=== PATIENT | female | born 1960 | race Caucasian/White ===

== ENCOUNTER 2024-06-10 12:26 | Emergency (ER) | payer MEDICARE, SELFPAY ==
--- OUTSIDE RECORDS SUMMARY | 2024-06-10 12:28 | XMS_ITS | Clinical Summary ---
Author Organization [facility] Address [address] [place] [address] Care Team Providers Care Coverage Specialist Name Role Phone Elsewhere, Pcp Primary Care Provider Unavailabl e Source Comments Patient records contain information from all sites at [facility]. For routine questions regarding patient records, call [phone] during business hours, M-F 8:00 AM - 5:00 PM Central Time. Record requests for emergency care only can be directed to [phone] at any time.[facility] Allergies No known active allergies Medications acetaminophen (TYLENOL) 325 mg tablet Take 650 mg by mouth every 6 (six) hours. 09/04/19 23 Active ferrous gluconate (FERGON) 324 mg (38 mg iron) tablet Take 324 mg by mouth. 09/04/19 23 Active folic acid 1 mg tablet Take 1 mg by mouth daily. 09/05/19 23 Active nicotine (NICOTROL) 10 mg inhaler Inhale 10 mg every 2 (two) hours as needed. 09/04/19 23 Active oxyCODONE (ROXICODONE) 5 mg immediate release tablet Take 5 mg by mouth every 4 (four) hours as needed. 09/04/19 23 Active pantoprazole (PROTONIX) 40 mg EC tablet Take 40 mg by mouth. 09/04/19 23 Active polyethylene glycol (MIRALAX) 17 gram powder packet 17 g by Nasogastric route at bedtime as needed. 09/04/19 23 Active sennosides (SENOKOT) 8.6 mg tablet Take 8.6 mg by mouth 2 (two) times a day as needed. 09/04/19 23 Active sodium chloride 1,000 mg disintegrating tablet Take 1 g by mouth. 09/04/19 23 Active thiamine mononitrate, vit B1, (VITAMIN B1) 100 mg tablet Take 100 mg by mouth. 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 Gender Identity Not on file Sexual Orientation Not on file Last Filed Vital Signs Vital Sign Reading Time Taken Comments Blood Pressure 120/80 01/07/2016 4:42 PM CDT Pulse 80 01/07/2016 4:42 PM CDT Temperature - - Respiratory Rate 16 01/07/2016 4:42 PM CDT Oxygen Saturation - - Inhaled Oxygen Concentration - - Weight 63 kg (138 lb 14.2 oz) 01/07/2016 4:42 PM CDT Height 170 cm (5' 6.93) 01/07/2016 4:42 PM CDT Body Mass Index 21.8 01/07/2016 4:42 PM CDT Plan of Treatment Health Maintenance Due Date Last Done Comments Bone Density Scan (Osteoporosis Screen) 1958 CT Colonography 1958 Cologuard 1958 Colonoscopy 1958 Colorectal Cancer Screening 1958 FIT 1958 Hepatitis B Screening 1958 Hepatitis C Screening 1958 Mammogram 1958 Pneumococcal vaccine (50+ years) (1 of 2 - PCV) 1977 Zoster Vaccines (2 of 2) 09/11/2021 07/17/2021 COVID-19 Vaccine (2023- season) 2023 02/18/2023, 01/20/2022, 03/06/2021, Additional history exists Influenza Vaccine (#1) 2023 01/16/2020 Depression Screening (Annual PHQ-2) 03/28/2024 Fall Risk Screen (Annual) 03/28/2024 Fasting Glucose for Diabetes Screening 10/18/2025 10/18/2022, 10/06/2022, 09/20/2022, Additional history exists DTaP,Tdap,and Td Vaccines (2 - Td or Tdap) 09/20/2032 09/20/2022 IPV Vaccines Aged Out No longer eligi ble based on patient's age to complete this topic Procedures Procedure Name Priority Date/Time Associated Diagnosis Comments BASIC METABOLIC PANEL, S/P Routine 01/07/2016 5:43 PM CDT from Last 3 Months or Most Recently Relevant to Health Maintenance Results * (ABNORMAL) BMP (Basic Metabolic Panel) (01/07/2016 5:43 PM CDT) Sodium, S 135 135 - 145 MMOLL POWERCHART Potassium, S 4.0 3.6 - 5.2 MMOLL POWERCHART Chloride, S 93(L) 98 - 107 MMOLL POWERCHART CO2 Total 26 22 - 29 MMOLL POWERCHART BUN (Blood Urea Nitrogen), S 11 6 - 21 MGDL POWERCHART Creatinine 0.56(L) 0.60 - 1.10 MGDL POWERCHART Calcium, Total, S 9.7 8.0 - 10.3 MGDL POWERCHART Anion Gap 16(H) 7 - 15 MMOLL POWERCHART HXeGFR (MDRD) >60 >=60 [id number] POWERCHART eGFR Black/ >60 >=60 [id number] POWERCHART Glucose 80 70 - 139 MGDL POWERCHART Blood 01/07/2016 5:43 PM CDT us Tony Barboza P.A.-C. LAB BLOOD ADD-ON Final Result POWERCHART from Last 3 Months or Most Recently Relevant to Health Maintenance Care Teams Coverage Specialist Relationship Specialty Start Date End Date Elsewhere, Pcp PCP - General 12/26/20
--- OUTSIDE RECORDS SUMMARY | 2024-06-10 12:29 | XMS_ITS | Clinical Summary ---
Author Organization [facility] Address [address] [place] [address] Care Team Providers Care Product Expert Name Role Phone [facility] + [phone] Amanda Leija Primary Care Provider + [phone] Allergies No known active allergies Medications folic acid 1 mg tabletIndication s:Anemia, unspecified type Take 1 Tablet (1 mg) by mouth once daily. 30 Tablet 09/04/2022 Active thiamine mononitrate, vit B1, (VITAMIN B1) 100 mg tabletIndication s:Alcohol use Take 1 Tablet (100 mg) by mouth once daily. 30 Tablet 09/04/2022 Active calcium carbonate-vitami n D3, 600 mg-400 unit, 600 mg-10 mcg (400 unit) tablet Take 1 Tablet by mouth two times daily with meals. 200 Tablet 4 09/14/2022 Active sodium chloride 1,000 mg soluble tabletIndication s:Hyponatremia Take 1 Tablet (1,000 mg) by mouth two times daily. 180 Tablet 3 09/20/2022 Active Ferrous Gluconate 324 mg (38 mg iron) tabletIndication s:Iron deficiency Take 1 Tablet (324 mg) by mouth once daily with a meal. 90 Tablet 3 09/20/2022 Active Active Problems Problem Noted Date Diagnosed Date Cataract of both eyes 02/18/2023 Heart murmur 02/18/2023 SIADH (syndrome of inappropriate ADH production) 09/21/2022 Closed fracture of olecranon process of right ulna with routine healing 09/21/2022 Pelvic fracture 08/24/2022 Closed displaced fracture of acromial end of right clavicle with routine healing 06/07/2022 Overview (06/07/2022): 2022: Fall resulting in rib and clavicle fracture. Ascending aortic aneurysm 06/07/2022 Overview (06/07/2022): May 2022: CT showing 4.1 cm Ascending aortic enlargement. Plan to recheck in 1 year ( May 2023). Closed fracture of multiple ribs of right side with routine healing 06/07/2022 Overview (06/07/2022): Apr 2022 fall resulting in Right 2nd, 3rd, 4th rib fractures. Immunizations Immunization Administration Dates Next Due COVID-19 VACCINE SPIKEVAX (M ODERNA 50MCG/0.5ML) 12YO+ PFS 02/18/2023 COVID-19 vaccine (Blue Rooster 30mcg/0.3mL) P F, MDV 05/06/2020,04/15/2020 Influenza, IIV4 (=>6mos) MDV 01/16/2020 Tdap 09/20/2022 Zoster (Shingrix-RZV, recombinant) 07/17/2021 Family History Medical History Relation Name Comments Parkinsonism Father Bone cancer Mother Relation Name Status Comments Father Alive Mother Alive Social History Tobacco Use Types Packs/Day Years Used Date Smoking Tobacco: Every Day Cigarettes Smokeless Tobacco: Never Tobacco Cessation:Ready to Q uit: Yes; Counseling Given: Not Answered Alcohol Use Standard Drinks/Week Comments Yes 7 (1 standard drink = 0.6 oz pur e alcohol) PHQ-2 Answer Date Recorded PHQ-2 TOTAL SCORE 2 03/11/2020 Social Connections Answer Date Recorded Frequency of Communication with Friends and Fami ly Not on file 03/28/2021 Financial Resource Strain Answer Date R ecorded Difficulty of Paying Living Expenses Not on file 03/28/2021 Difficulty of Paying Living Expenses Not on file 03/28/2021 Comments No Sex and Gender Information Value Date Recorded Sex Assigned at Not on file Legal Sex Female 9:02 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 LOADER Gender Identity Not on file Sexual Orientation Not on file Obstetrics History Last Filed Vital Signs Vital Sign Reading Time Taken Comments Blood Pressure 186/94 02/18/2023 9:18 AM FUSING FURNACE LOADER Pulse 97 02/18/2023 9:18 AM FUSING FURNACE LOADER Temperature 36.1 C (96.9 F) 10/07/2022 1:17 PM CDT Respiratory Rate 18 10/13/2022 3:29 PM CDT Oxygen Saturation 99% 02/18/2023 9:18 AM FUSING FURNACE LOADER Inhaled Oxygen Concentration - - Weight 55.4 kg (122 lb 3.2 oz) 02/18/2023 9:18 A M FUSING FURNACE LOADER Height 165.1 cm (5' 5) 02/18/2023 9:18 AM FUSING FURNACE LOADER Body Mass Index 20.34 02/18/2023 9:18 AM FUSING FURNACE LOADER Plan of Treatment Health Maintenance Due Date Last Done Comments Pneumococcal series for age 50+ (1 of 2 - PCV) 1977 Colonoscopy through age 75 2003 Mammogram for age 45-75 2003 Depression screening for age 12+ 03/12/2021 03/12/2020, 03/11/2020, 03/11/2020, Additional history exists Zoster (shingles) series for age 50+ (2 of 2) 09/11/2021 07/17/2021 DEXA/DXA scan for age 65+ 2023 COVID-19 vaccine series ( season) 2023 02/18/2023, 01/20/2022, 03/06/2021, Additional history exists Influenza Vaccine (#1) 2023 01/16/2020 BMI (ht and wt on same day) for age 18+ 02/19/2024 02/18/2023, 12/25/2020, 04/28/2020, Additional history exists Lipids for age 45-75 09/21/2027 09/20/2022 Tetanus booster 09/20/2032 09/20/2022 RSV vaccine for adults or (1 - 1-dose 75+ series) 2033 Hepatitis C screening for ag e 18-79 Completed 09/20/2022 Tdap Completed 09/20/2022 Procedures Procedure Name Priority Date/Time Associated Diagnosis Comments LC HCV ANTIBODY RFX TO QUANT PCR Routine 09/20/2022 11:05 AM CDT Need for hepatitis C screening test LIPID PANEL W REFLEX MEASURED LDL Routine 09/20/2022 11:05 AM CDT Screening cholesterol level from Last 3 Months or Most Recently Relevant to Health Maintenance Results * LC HCV ANTIBODY RFX TO QUANT PCR (09/20/2022 11:05 AM CDT) [facility] HCV Ab Non Reactive Non Reactive 09/22/2022 2:08 PM CDT [facility] Blood BLOOD SPECIMEN / Unknown Venipuncture / Unknown 09/20/2022 11:05 AM CDT 09/20/2022 11:09 AM CDT Narrative [facility] - 09/22/2022 2:08 PM CDT Performed at: [address] [place] [id number] Entry Level Project Coordinator: Dagoberto Gray MD, Phone: [phone] us [facility] Final Resu lt [facility] ([facility]) [address] [place] [address], * (ABNORMAL) LIPID PANEL W REFLEX MEASURED LDL (09/20/2022 11:05 AM CDT) [facility] CHOLESTEROL,TOTAL 199 100 - 199 mg/dL 09/20/2022 10:34 PM CDT [facility] Comment: Cholesterol, Total Reference Ranges Desirable <200 mg/dL Borderline 200-239 mg/dL High >=240 mg/dL TRIGLYCERIDES 154(H) <150 mg/dL 09/20/2022 10:34 PM CDT [facility] HDL CHOLESTEROL 47 >40 mg/dL 10:34 PM CDT [facility] NON-HDL CHOLESTEROL 152(H) <145 mg/dl 09/20/2022 10:34 PM CDT [facility] CHOL/HDL RATIO 4.23 <4.50 09/20/2022 10:34 PM CDT [facility] LDL CHOLESTEROL 121 <=130 mg/dL 09/20/2022 10:34 PM CDT [facility] VLDL CHOLESTEROL 31(H) <=30 mg/dL 09/20/2022 10:34 PM CDT [facility] PROVIDER ORDERED STATUS RANDOM 09/20/2022 10:34 PM CDT [facility] Blood BLOOD SPECIMEN / Unknown Venipuncture / Unknown 09/20/2022 11:05 AM CDT 09/20/2022 11:09 AM CDT [facility] Final Resu lt [facility] 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
[2024-06-10 12:36] VITALS: BP 171/91; PULSE 115; RESP 24; TEMP 37.1; O2SAT 97; BMI 20.6
--- NOTE | 2024-06-10 12:57 | CRLHL7_ITS ---
For Patients: As a result of the Century Cures Act, medical imaging exams and procedure reports are released immediately into your electronic medical record. You may view this report before your referring provider. If you have questions, please contact your health care provider. Indication: FALL LEFT HIP PAIN CANT BEAR WEIGHT PREVIOUS PELVIS FX IN 2 PALCES 2 YEARS AGO Technique: CT pelvis without IV contrast Comparison: None Findings: Nondisplaced left acetabular fracture. Small left hip joint effusion. No additional fractures or malalignment. Sequela of remote, healed left superior and bilateral inferior pubic rami fractures. There is some mild facet arthropathy of the imaged lower lumbar spine. There are some mild osteoarthritic degenerative changes of the bilateral sacroiliac joints. No suspicious osseous lesions. No acute intra-abdominal or intrapelvic process. Calcified uterine fibroid. Calcific atherosclerosis of the aortoiliac system and pelvic phleboliths. Tiny fat containing umbilical hernia. Impression: Nondisplaced left acetabular fracture. Please note that all CT scans at this facility use dose modulation, iterative reconstruction, and/or weight-based dosing when appropriate to reduce radiation dose to as low as reasonably achievable. Dictated by Stephen Gibbons MD @ 06/10/2024 1:29:46 PM (Electronically Signed)
--- NOTE | 2024-06-10 12:57 | ED_ITS ---
HPI - General Adult General Chief complaint: Hip Injury/Pain Stated complaint: L hip Time Seen by Provider: 06/10/24 12:30 Source: patient Mode of arrival: ambulatory Limitations: no limitations History of Present Illness HPI narrative: 64-year-old female presenting today with hip pain. Patient states that she fell 3 days ago onto her left side and has not been able to walk since. She states that she tripped and lost her balance. She did hit her head on the ground but did not lose consciousness. She states she has been acting normally since aside from her hip pain. She denies confusion, headache, changes in her vision or blurry vision. No slurred speech. States that the pain is located at the top of the upper outer thigh. She cannot bear weight on that side. She has been incontinent of the urine ever since she fell. Patient states that about 2 years ago she fainted and fell in a parking lot and suffered a pelvic fracture. She became incontinent at that time as well. After rehab everything went back to normal until when she fell again. Patient states that her past medical history is otherwise benign. She takes no medications and has no other medical diagnoses. She does smoke a pack of cigarettes per day and drinks alcohol daily. Patient states that she does have a drinking problem. She states that she has not had any alcoholic beverages since the day she fell. Related Data Previous Rx's ?Medication ?Instructions ?Recorded hydrocodone 5 mg-acetaminophen 325 1 tab PO Q6H PRN pain #10 tabs 06/10/24 mg tablet Allergies Allergy/AdvReac Type Severity Reaction Status Date / Time No Known Drug Allergies Allergy Verified 06/10/24 12:36 Review of Systems Status of ROS: Reports: 10 or more systems reviewed and unremarkable except as noted in History and below [facility] Social History Smoking Status: Current every day smoker What tobacco products do you use: cigarettes Do you use any of these nicotine containing products: None Second hand tobacco smoke exposure: Yes How often do you have a drink containing alcohol: 4 or more times a week How many standard drinks containing alcohol do you have on a typical day: 5 or 6 How often do you have six or more drinks on one occasion: Daily or almost daily AUDIT-C Alcohol total score: 10 Non-prescribed substance use: denies use service: No Exam Narrative: Exam Narrative: Thin, well-developed patient in no acute distress. Alert and oriented. Answers questions appropriately. Mood and affect are appropriate. Thoughts are goal oriented and rational. No tangential or magical thinking noted. Patient speaks in full sentences without needing to catch her breath. Smells heavily of tobacco. HEENT: Normocephalic. Patient has a very small superficial laceration over the left lateral eyebrow old that is healing. She has surrounding ecchymosis that appears to be several days old. Pupils are equally round reactive to light. Extraocular muscles are intact. Conjunctivae are moist without any icterus noted. Moist mucous membranes. Posterior pharynx is normal. Neck is soft. No tenderness to palpation of the cervical spine. Full range of motion with flexion, extension, side bending or rotation without pain. Cardiovascular: Slightly tachycardic, regular rhythm. Lungs: Clear to auscultation bilaterally no wheezes rhonchi or rales are appreciated. Patient takes deep breaths without any discomfort. Abdomen: Soft and nontender nondistended with normal bowel sounds. Extremities: Bilateral lower extremities are without edema. No obvious bruising noted. Patient can flex at the hip but it causes discomfort in the posterolateral hip. No tenderness to palpation at the lumbar or thoracic spine. Knee has a small bruise on it that appears to be a few days old, the knees otherwise nontender without joint effusion. She has good range of motion without pain. Remainder of the extremity is unremarkable. Skin: Well perfused. Const: Vital Signs, click to edit/add: Vital Signs - 24 hr 06/10/24 12:36 Temperature 98.8 F Pulse Rate [Pulse Oximeter] 115 H Respiratory Rate 24 Blood Pressure [Le ft Upper Arm] 171/91 H Pulse Oximetry 97 Oxygen Delivery Me thod Room Air Course Course ED Course: Since has been a few days and patient has history of pelvic fracture we proceeded with a CT scan of the pelvis. This showed a nondisplaced acetabular fracture. Consulted with Eva woods from Orthopedics who recommended weight-bearing as tolerated and physical therapy. Vital Signs Vital signs: Initial Vital Signs Temperature 98.8 F 06/10/24 12:36 Temperature Source Temporal Artery Scan 06/10/24 12:36 Pulse Rate 115 H 06/10/24 12:36 Pulse Rhythm Regular 06/10/24 12:36 Respiratory Rate 24 06/10/24 12:36 Blood Pressure 171/91 H 06/10/24 12:36 Blood Pressure Mean 117 H 06/10/24 12:36 Blood Pressure Position Supine 06/10/24 12:36 Pulse Oximetry 97 06/10/24 12:36 Oxygen Delivery Method Room Air 06/10/24 12:36 Vital Signs Temperature 98.8 F 06/10/24 12:36 Pulse Rate 115 H 06/10/24 12:36 Respiratory Rate 24 06/10/24 12:36 Blood Pressure 171/91 H 06/10/24 12:36 Pulse Oximetry 97 06/10/24 12:36 Oxygen Delivery Method Room Air 06/10/24 12:36 Temperature 98.8 F 06/10/24 12:36 Pulse Rate 115 H 06/10/24 12:36 Respiratory Rate 24 06/10/24 12:36 Blood Pressure 171/91 H 06/10/24 12:36 Pulse Oximetry 97 06/10/24 12:36 Oxygen Delivery Method Room Air 06/10/24 12:36 Medical Decision Making MDM Narrative Medical decision making narrative: Nondisplaced acetabular fracture. Since patient's pelvic fracture 2 years ago she states that she has a walker and wheelchair at her home and that she can get around with the assistance of her she would like to go home at this time. She will call her primary care provider 1st thing tomorrow morning to set up physical therapy. Imaging Data CT pelvis: Attestation: I have reviewed the pertinent imaging results. Radiologist's impression: Technique: CT pelvis without IV contrast Comparison: None Findings: Nondisplaced left acetabular fracture. Small left hip joint effusion. No additional fractures or malalignment. Sequela of remote, healed left superior and bilateral inferior pubic rami fractures. There is some mild facet arthropathy of the imaged lower lumbar spine. There are some mild osteoarthritic degenerative changes of the bilateral sacroiliac joints. No suspicious osseous lesions. No acute intra-abdominal or intrapelvic process. Calcified uterine fibroid. Calcific atherosclerosis of the aortoiliac system and pelvic phleboliths. Tiny fat containing umbilical hernia. Impression: Nondisplaced left acetabular fracture. Discharge Plan Discharge Clinical Impression: Acetabular fracture Patient Disposition: Home, Self-Care Condition: Stable Additional Instructions: Walk as tolerated. Encouraged using walker and wheelchair as needed to get around. You will need to call your primary care provider 1st thing in the morning to set up physical therapy and rehab. Take pain medications as needed/as prescribed. These medications can cause drowsiness, constipation. You should not take these medications and drink alcohol at the same time. This medication also contains acetaminophen which is the same thing as Tylenol. Do not take more than 3,000 mg of acetaminophen combined in a 24 hour period. Prescriptions: New hydrocodone-acetaminophen 5-325 mg tablet 1 tab PO Q6H PRN (Reason: pain) Qty: 10 0RF Stand Alone Forms: Cardiovascular Provider Resource [employer] Info Instructions
--- OUTSIDE RECORDS SUMMARY | 2024-06-10 14:16 | XMS_ITS | Clinical Summary ---
Author Organization [facility] Address [address] [place] [address] Care Team Providers Care Race Steward Name Role Phone Elsewhere, Pcp Primary Care Provider Unavailabl e Source Comments Patient records contain information from all sites at [facility]. For routine questions regarding patient records, call [phone] during business hours, M-F 8:00 AM - 5:00 PM Central Time. 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 LAB BLOOD ADD-ON Final Result POWERCHART from Last 3 Months or Most Recently Relevant to Health Maintenance Care Teams Race Steward Relationship Specialty Start Date End Date Elsewhere, Pcp PCP - General 12/26/20
--- OUTSIDE RECORDS SUMMARY | 2024-06-10 14:17 | XMS_ITS | Clinical Summary ---
Author Organization [facility] Address [address] [place] [id number] Care Team Providers Care Structural Fitter Name Role Phone [facility] + [phone] Amanda Leija Primary Care Provider + [phone] Allergies No known active allergies Medications folic [...] ODERNA 50MCG/0.5ML) 12YO+ PFS 02/18/2023 COVID-19 vaccine (SoundTag 30mcg/0.3mL) P F, MDV 05/06/2020,04/15/2020 Influenza, IIV4 [...] on file Legal Sex Female 9:02 AM BUDGET CONSULTANT Gender Identity Not on file Sexual Orientation Not on file Obstetrics History Last Filed Vital Signs Vital Sign Reading Time Taken Comments Blood Pressure 186/94 02/18/2023 9:18 AM BUDGET CONSULTANT Pulse 97 02/18/2023 9:18 AM BUDGET CONSULTANT Temperature 36.1 C (96.9 F) 10/07/2022 1:17 PM CDT Respiratory Rate 18 10/13/2022 3:29 PM CDT Oxygen Saturation 99% 02/18/2023 9:18 AM BUDGET CONSULTANT Inhaled Oxygen Concentration - - Weight 55.4 kg (122 lb 3.2 oz) 02/18/2023 9:18 A M BUDGET CONSULTANT Height 165.1 cm (5' 5) 02/18/2023 9:18 AM BUDGET CONSULTANT Body Mass Index 20.34 02/18/2023 9:18 AM BUDGET CONSULTANT Plan of Treatment Health Maintenance Due Date [...] TO QUANT PCR (09/20/2022 11:05 AM CDT) [facility] HCV Ab Non Reactive Non Reactive 09/22/2022 2:08 PM CDT [facility] Blood BLOOD SPECIMEN / Unknown Venipuncture / Unknown 09/20/2022 11:05 AM CDT 09/20/2022 11:09 AM CDT Narrative [facility] - 09/22/2022 2:08 PM CDT Performed at: [address] [place] [id number] Management Aide: Dagoberto Gray MD, Phone: [phone] us [facility] Final Resu lt [facility] ([facility]) [address] [place] [address], * (ABNORMAL) LIPID PANEL W REFLEX MEASURED LDL (09/20/2022 11:05 AM CDT) [facility] CHOLESTEROL,TOTAL 199 100 - 199 mg/dL 09/20/2022 10:34 PM CDT [facility] Comment: Cholesterol, Total Reference Ranges Desirable <200 mg/dL Borderline 200-239 mg/dL High >=240 mg/dL TRIGLYCERIDES 154(H) <150 mg/dL 09/20/2022 10:34 PM CDT [facility] HDL CHOLESTEROL 47 >40 mg/dL 10:34 PM CDT [facility] NON-HDL CHOLESTEROL 152(H) <145 mg/dl 09/20/2022 10:34 PM CDT [facility] CHOL/HDL RATIO 4.23 <4.50 09/20/2022 10:34 PM CDT [facility] LDL CHOLESTEROL 121 <=130 mg/dL 09/20/2022 10:34 PM CDT [facility] VLDL CHOLESTEROL 31(H) <=30 mg/dL 09/20/2022 10:34 PM CDT [facility] PROVIDER ORDERED STATUS RANDOM 09/20/2022 10:34 PM CDT [facility] Blood BLOOD SPECIMEN / Unknown Venipuncture / Unknown 09/20/2022 11:05 AM CDT 09/20/2022 11:09 AM CDT [facility] Final [facility] 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
== END 2024-06-10 14:21 | disposition home or self-care (01) ==
PROVIDERS: Emergency Provider Family Medicine
DX: S32.402A Unspecified fracture of left acetabulum, initial encounter for closed fracture (principal); W01.0XXA Fall on same level from slipping, tripping and stumbling without subsequent striking against object, initial encounter
CPT/HCPCS: 72192; 99284